=== PATIENT | female | born 1970 | race Caucasian/White ===

== ENCOUNTER → 2018-04-05 | Outpatient (CLI) | payer OTHER ==
[~2018-04-05] MED LIST: MULTIVITAMIN PO
== END | disposition home or self-care (01) ==
LOC: CVU 12:58
PROVIDERS: ATTEND Internal Medicine Cardiovascular Disease
DX: I70.0 Atherosclerosis of aorta (principal)
CPT/HCPCS: 93306

== ENCOUNTER → 2018-04-11 | Outpatient (CLI) | payer OTHER ==
[~2018-04-11] MED LIST changes: +OMNIPAQUE 350 MG/ML, 100ML BOTTLE ONE; +PARO40TA61 PO; +ROSU5TAB PO
== END | disposition home or self-care (01) ==
LOC: CFH 11:26
PROVIDERS: ATTEND Surgery
DX: K42.9 Umbilical hernia without obstruction or gangrene (principal)
CPT/HCPCS: 74177; Q9967